=== PATIENT | female | born 1980 | race African-American/Black ===

== ENCOUNTER 2017-03-31 22:53 | Emergency (ER) | payer OTHER, SELFPAY ==
[2017-03-31] MEDS ORDERED: Ibuprofen 800 MG TAB ONE (23:16)
== END 2017-03-31 23:36 | disposition home or self-care (01) ==
LOC: SCSER 22:53
DX: N64.4 Mastodynia (principal); E11.9 Type 2 diabetes mellitus without complications; F17.210 Nicotine dependence, cigarettes, uncomplicated; Z79.84 Long term (current) use of oral hypoglycemic drugs
CPT/HCPCS: 81025; 99283

== ENCOUNTER 2017-10-23 08:42 | Outpatient (CLI) | payer MEDICAID | END 2017-10-23 08:43 | disposition home or self-care (01) | LOC: BICULT 08:42 | PROVIDERS: ATTEND Family Medicine | DX: N63.0 Unspecified lump in unspecified breast (principal) ==

== ENCOUNTER 2023-09-05 12:58 | Outpatient (CLI) | payer OTHER | END 2023-09-05 12:59 | disposition home or self-care (01) | LOC: SCSRAD 12:58 | PROVIDERS: ATTEND Family Medicine | DX: M51.36 Other intervertebral disc degeneration, lumbar region (principal); M47.816 Spondylosis without myelopathy or radiculopathy, lumbar region | CPT/HCPCS: 72100 ==

== ENCOUNTER 2024-01-21 11:47 | Outpatient (CLI) | payer OTHER | END 2024-01-21 11:48 | disposition home or self-care (01) | LOC: BICRAD 11:47 | PROVIDERS: ATTEND Registered Nurse | DX: M25.562 Pain in left knee (principal) ==